=== PATIENT | female | born 1990 | race Caucasian/White ===

== ENCOUNTER 2016-08-27 09:33 | Emergency (ER) | payer SELFPAY ==
[~2016-08-27] VITALS: Ht 152.4 cm; Wt 65.0 kg
[2016-08-27] MEDS ORDERED: SODIUM CHLORIDE 0.9% 1,000 ML IV ONE (14:27)
[2016-08-27 14:52] LABS: BASOPHILS % 0.5 % (0.0-2.0); EOSINOPHILS % 0.9 % (0.0-5.0); HEMATOCRIT. 36.2 % (36.0-48.0); HEMOGLOBIN. 12.4 g/dL (12.0-16.0); LYMPHOCYTES % 31.7 % (20.0-50.0); MEAN CORPUSCULAR HEMOGLOBIN 30.2 pg (28.0-32.0); MEAN CORPUSCULAR VOLUME 88.1 fL (81.0-99.0); MEAN PLATELET VOLUME 6.7 fl (7.4-10.4); NEUTROPHILS % 60.9 % (40.0-76.0); PLATELET 344 x1000/uL (130-400); RED BLOOD CELL COUNT 4.11 mill/uL (4.2-5.4); RED CELL DISTRIBUTION WIDTH 14.3 % (11.6-14.6)
[2016-08-27 15:02] LABS: CHLORIDE 104 mEq/L (98-107)
[2016-08-27 15:09] LABS: CARBON DIOXIDE 23 mEq/L (21-32)
[2016-08-27 15:24] LABS: B-HCG QUANTITATIVE 30921 mIU/mL (<3)
[2016-08-27 16:42] LABS: CLARITY URINE CLOUDY (CLEAR); COLOR URINE YELLOW (YELLOW); GLUCOSE URINE NEGATIVE (NEGATIVE); KETONES URINE 1+ (NEGATIVE); LEUKOCYTE ESTERASE URINE NEGATIVE (NEGATIVE); NITRITE URINE NEGATIVE (NEGATIVE); OCCULT BLOOD URINE TRACE (NEGATIVE); PH URINE 7.5 (4.5-8.0); PROTEIN URINE NEGATIVE (NEGATIVE); SPECIFIC GRAVITY URINE 1.018 (1.005-1.030); UROBILINOGEN URINE 0.2 E.U./dL (0.2-1.0)
[2016-08-27 16:45] VITALS: BP 96/70
== END 2016-08-27 18:01 | disposition home or self-care (01) ==
LOC: ER 14:32
DX: O44.12 Complete placenta previa with hemorrhage, second trimester (principal); Z3A.15 15 weeks gestation of pregnancy
CPT/HCPCS: 36415; 76805; 80048; 81001; 84702; 85025; 86850; 86900; 99285; J7030

== ENCOUNTER 2019-05-16 21:03 | Emergency (ER) | payer MEDICAID ==
[~2019-05-16] VITALS: Ht 157.5 cm; Wt 63.5 kg
[2019-05-16] MEDS: LIDOCAINE HCL/EPINEPHRINE 1%-EPI 1:100,000 20 ML VIAL INFIL NR ×2 (01:45→23:20)
[2019-05-16] MEDS ORDERED: LIDOCAINE/EPINEPHR/TETRACAINE 3ML TP ONE (23:30)
[2019-05-16] MEDS ORDERED: LIDOCAINE 1%/EPI 1:100,000 10 ML VIAL IJ ONE (23:30)
[2019-05-17] MEDS ORDERED: VISCOUS LIDOCAINE 2% 15 ML UDC MM ONE (00:30)
[2019-05-17 02:05] VITALS: BP 118/66
== END 2019-05-17 02:21 | disposition home or self-care (01) ==
LOC: ER 21:03
DX: N61.1 Abscess of the breast and nipple (principal)
CPT/HCPCS: 99283; J3490

== ENCOUNTER 2019-05-19 06:29 | Emergency (ER) | payer MEDICAID ==
[~2019-05-19] VITALS: Ht 152.4 cm; Wt 64.0 kg
[2019-05-19 07:13] VITALS: BP 118/71
[2019-05-19] MEDS ORDERED: LIDOCAINE HCL/PF 1% 10 MG/ML 5ML VIAL IJ ONE (08:45)
== END 2019-05-19 09:19 | disposition home or self-care (01) ==
LOC: ER 07:06
DX: Z48.00 Encounter for change or removal of nonsurgical wound dressing (principal)
CPT/HCPCS: 99282

== ENCOUNTER 2019-05-24 07:47 | Emergency (ER) | payer MEDICAID ==
[~2019-05-24] VITALS: Ht 165.1 cm; Wt 85.0 kg
[2019-05-24 10:42] VITALS: BP 120/78
== END 2019-05-24 10:43 | disposition home or self-care (01) ==
LOC: ER 08:03
DX: N61.1 Abscess of the breast and nipple (principal)
CPT/HCPCS: 99283

== ENCOUNTER 2019-08-26 11:53 | Emergency (ER) | payer MEDICAID ==
[~2019-08-26] VITALS: Ht 152.4 cm; Wt 65.9 kg
[2019-08-26 12:51] LABS: CLARITY URINE CLOUDY (CLEAR); COLOR URINE DARK YELLOW (YELLOW); KETONES URINE NEGATIVE (NEGATIVE); LEUKOCYTE ESTERASE URINE 2+ (NEGATIVE); NITRITE URINE NEGATIVE (NEGATIVE); OCCULT BLOOD URINE 1+ (NEGATIVE); PH URINE >=9.0 (4.5-8.0); PROTEIN URINE 1+ (NEGATIVE); SPECIFIC GRAVITY URINE 1.016 (1.005-1.030)
[2019-08-26] MEDS ORDERED: IBUPROFEN 600MG TABLET PO STA (13:04)
[2019-08-26] MEDS ORDERED: ALBUTEROL 6.7GM HFA INHALER ORI ONE (15:00)
[2019-08-26 15:18] LABS: BASOPHILS % 0.1 % (0.0-2.0); CHLORIDE 108 mEq/L (98-107); HEMOGLOBIN. 14.2 g/dL (12.0-16.0); LYMPHOCYTES % 7.1 % (20.0-50.0); MEAN CORPUSCULAR HEMOGLOBIN 29.9 pg (28.0-32.0); MONOCYTES % 5.9 % (2.0-8.0); NEUTROPHILS % 86.9 % (40.0-76.0); PLATELET 395 x1000/uL (130-400); RED BLOOD CELL COUNT 4.77 mill/uL (4.2-5.4); RED CELL DISTRIBUTION WIDTH 14.1 % (11.6-14.6)
[2019-08-26 16:07] VITALS: BP 112/68
== END 2019-08-26 16:47 | disposition home or self-care (01) ==
LOC: ER 11:53
DX: Z03.818 Encounter for observation for suspected exposure to other biological agents ruled out (principal); J18.9 Pneumonia, unspecified organism; N39.0 Urinary tract infection, site not specified; R11.2 Nausea with vomiting, unspecified; B34.9 Viral infection, unspecified
CPT/HCPCS: 36415; 71045; 80053; 81003; 83605; 85025; 87086; 93005; 99285; U0003

== ENCOUNTER 2019-10-02 20:06 | Emergency (ER) | payer MEDICAID ==
[~2019-10-02] VITALS: Ht 152.4 cm; Wt 62.0 kg
[2019-10-02 20:34] VITALS: BP 116/80
== END 2019-10-03 00:31 | disposition home or self-care (01) ==
LOC: ER 20:06
DX: N61.0 Mastitis without abscess (principal)
CPT/HCPCS: 99282; 99283

== ENCOUNTER 2019-11-01 05:10 | Emergency (ER) | payer MEDICAID ==
[~2019-11-01] VITALS: Ht 154.9 cm; Wt 68.0 kg
[2019-11-01] MEDS ORDERED: LIDOCAINE 1%/EPI 1:100,000 10 ML VIAL IJ ONE (06:30)
[2019-11-01] MEDS ORDERED: BACITRACIN ZINC OINT UDPKT TOP ONE (06:30)
[2019-11-01] MEDS ORDERED: LIDOCAINE HCL/EPINEPHRINE 1%-EPI 1:100,000 20 ML VIAL INFIL SCH (06:45)
[2019-11-01] MEDS ORDERED: ACETAMINOPHEN 325MG TABLET PO ONE (07:45)
[2019-11-01] MEDS ORDERED: LIDOCAINE HCL 1% 20ML VIAL (Pyxis) INJ INFIL ONE (08:15)
[2019-11-01] MEDS ORDERED: SULFAMETHOXAZOLE/TRIMETHOPRIM 800/160MG TABLET PO ONE (08:15)
[2019-11-01] MEDS ORDERED: CEFTRIAXONE SODIUM 1 G/VIAL IM ONE (08:15)
[2019-11-01 11:00] VITALS: BP 113/62
== END 2019-11-01 11:02 | disposition home or self-care (01) ==
LOC: ER 05:10
DX: N61.1 Abscess of the breast and nipple (principal)
CPT/HCPCS: 10060; 81025; 96372; 99285; J0696; J3490

== ENCOUNTER 2019-11-03 07:01 | Emergency (ER) | payer MEDICAID ==
[~2019-11-03] VITALS: Ht 149.9 cm; Wt 66.0 kg
[2019-11-03 07:04] VITALS: BP 109/66
== END 2019-11-03 07:35 | disposition home or self-care (01) ==
LOC: ER 07:01
DX: Z48.00 Encounter for change or removal of nonsurgical wound dressing (principal)
CPT/HCPCS: 99281